=== PATIENT | female | born 1980 | race Caucasian/White ===

== ENCOUNTER 2017-11-22 10:25 | Outpatient (REF) | payer BC, SELFPAY ==
--- NOTE | 2017-11-22 09:30 | PAPFT_PTH ---
PATIENT: Leida Cadet LOC: [facility] U#:[id number] AGE/SX: 37/F ROOM: RE11/22/[address]: Therese Harper MD, DC : 1980 BED: DIS: 11/22/2017 SPEC #: [id number] RECD: 11/22/17 13:06 STATUS: PARAM REJoe #: [id number] MIR: 11/22/17 09:[address]: Therese Harper DEPT: [facility] Cytology RECD BY: Umm Liu Tissues: 1 - CX/ENDOCX FOR PAP SMEARS Procedures: PAP THIN PREP/UVM Screening HPV DNA PROBE Comments: [id number] (CHLAMYDIA/GC)
[2017-11-23 15:54] LABS: Chlamydia Result Negative; GC Result Negative; Specimen Description SEE COMMENTS
== END 2017-11-22 10:45 ==
LOC: LBN 10:25
PROVIDERS: PCP Family Medicine; Visit Provider Family Medicine
DX: Z12.4 Encounter for screening for malignant neoplasm of cervix (principal); Z11.51 Encounter for screening for human papillomavirus (HPV); Z11.3 Encounter for screening for infections with a predominantly sexual mode of transmission
CPT/HCPCS: 87491; 87591; 88142; 87624

== ENCOUNTER 2018-11-27 09:38 | Outpatient (CLI) | payer BC, SELFPAY ==
[2018-11-29 17:06] LABS: Alpha-1-Antitrypsin 116 mg/dL (100 - 190)
== END 2018-11-27 09:58 ==
PROVIDERS: PCP Family Medicine; Visit Provider Family Medicine
DX: F17.200 Nicotine dependence, unspecified, uncomplicated (principal); Z00.00 Encounter for general adult medical examination without abnormal findings; Z83.49 Family history of other endocrine, nutritional and metabolic diseases
CPT/HCPCS: 36415; 82103; 82104

== ENCOUNTER 2018-11-27 10:06 | Outpatient (REF) | payer BC, SELFPAY ==
--- NOTE | 2018-11-27 09:30 | PAPFT_PTH ---
PATIENT: Leida Cadet LOC: [facility] U#:[id number] AGE/SX: 38/F ROOM: RE11/27/[address]: Therese Harper MD, DC : 1980 BED: DIS: 11/27/2018 SPEC #: [id number] RECD: 11/27/18 13:06 STATUS: PARAM REQ #: [id number] MIR: 11/27/18 09:[address]: Therese Harper DEPT: [facility] Cytology RECD BY: Umm Liu Tissues: 1 - CX/ENDOCX FOR PAP SMEARS Procedures: PAP THIN PREP/UVM Screening HPV DNA PROBE Comments: [id number]
== END 2018-11-27 10:26 ==
LOC: LBN 10:06
PROVIDERS: PCP Family Medicine; Visit Provider Family Medicine
DX: Z12.4 Encounter for screening for malignant neoplasm of cervix (principal); Z11.51 Encounter for screening for human papillomavirus (HPV)
CPT/HCPCS: 88142; 87624

== ENCOUNTER 2019-10-12 07:57 | Outpatient (CLI) | payer BC, SELFPAY ==
[2019-10-15 10:49] LABS: SARS-CoV-2 RNA Undetected (Undetected); SARS-CoV-2 Specimen Source Nasopharynx
== END 2019-10-12 08:17 ==
PROVIDERS: PCP Family Medicine; Visit Provider Family Medicine
DX: Z11.59 Encounter for screening for other viral diseases (principal)
CPT/HCPCS: U0003

== ENCOUNTER 2020-02-15 03:34 | Outpatient (CLI) | payer BC, SELFPAY ==
[2020-02-18 21:28] LABS: COVID-19 RT-PCR Result NEGATIVE (Negative)
== END 2020-02-15 03:54 ==
PROVIDERS: PCP Family Medicine; Visit Provider Family Medicine
DX: Z20.828 Contact with and (suspected) exposure to other viral communicable diseases (principal)
CPT/HCPCS: U0003

== ENCOUNTER 2022-03-09 12:34 | Outpatient (REF) | payer BC, SELFPAY ==
--- NOTE | 2022-03-09 11:30 | PAPFT_PTH ---
PATIENT: Leida Cadet LOC: [facility] U#:[id number] AGE/SX: 41/F ROOM: RE03/09/[address]: Therese Harper MD, DC : 1980 BED: DIS: 03/09/2022 SPEC #: [id number] RECD: 03/10/22 13:17 STATUS: PARAM REQ #: [id number] MIR: 03/09/22 11:[address]: Therese Harper DEPT: [facility] Cytology RECD BY: Umm Liu Tissues: 1 - CX/ENDOCX FOR PAP SMEARS Procedures: PAP THIN PREP/UVM Screening HPV DNA PROBE Comments: [id number]
== END 2022-03-09 12:35 | disposition home or self-care (01) ==
LOC: LBN 12:34
PROVIDERS: PCP Family Medicine; Visit Provider Family Medicine
DX: Z12.4 Encounter for screening for malignant neoplasm of cervix (principal); Z11.51 Encounter for screening for human papillomavirus (HPV)
CPT/HCPCS: 88142; 87624

== ENCOUNTER 2022-06-04 17:28 | Outpatient (REF) | payer BC, SELFPAY | END 2022-06-04 17:29 | disposition home or self-care (01) | LOC: LBN 17:28 | PROVIDERS: PCP Family Medicine; Visit Provider Nurse Practitioner Family | DX: J02.9 Acute pharyngitis, unspecified (principal) | CPT/HCPCS: 87070 ==

== ENCOUNTER 2024-04-04 08:09 | Emergency (ER) | payer OTHER, SELFPAY ==
[2024-04-04 08:10] VITALS: BP 146/90; PULSE 105; RESP 16; TEMP 37.1; O2SAT 97
--- NOTE | 2024-04-04 08:15 | DI.RAD_ITS ---
Exam(s) XR FOOT RT COMPLETE EXAM: XR FOOT RT COMPLETE CLINICAL HISTORY: 3-5th toe injury, lacerations/ecchymosis. TECHNIQUE: 2D digital imaging was performed. Three views. COMPARISON: No exams were available for comparison FINDINGS: BONES: There are comminuted fractures of the distal phalanges of the 2nd through 4th toes. There is separation of fracture fragments but no extension to the articular surface. No bony destructive lesi on is seen. JOINTS: No dislocation present. SOFT TISSUE: Normal soft tissue swelling and lacerations of the 3rd 2nd through 4th toes. No foreign bodies. IMPRESSION: Comminuted fractures of the 2nd through 4th toes. DATA REPOSITORY: RADIATION DOSE DELIVERED:
--- OUTSIDE RECORDS SUMMARY | 2024-04-04 08:29 | XMS_ITS | Encounter Summary ---
Author Organization [facility] Address [address] [place] [address] Care Team Providers Care Drone Pilot Name Role Phone Unknown, Provider Primary Care Provider Unava ilable Encounter Details Date Type Department Care Team (Late st Contact Info) Description 03/11/[address] [facility] Pathology & Laboratory Medicine - [facility] [address] [place] [address] Therese Harper MD [address] [place] [phone] Encounter for other general examination Social History Tobacco Use Types Packs/Day Years Used Date Smoking Tobacco: Never Assessed Comments Unknown Sex and Gender Information Value Date Recorded Sex Assigned at Not on file Legal Sex Female 18:41 EST Gender Identity Not on file Sexual Orientation Not on file documented as of this encounter Plan of Treatment Not on file documented as of this encounter Procedures Procedure Name Priority Date/Time Associated Diagnosis Comments PAP TEST Today 03/09/2022 11:30 EST Encounter for other general examination HPV DNA DETECTION WITH GENOTYPING, PCR Today 03/09/2022 11:30 EST Encounter for other general examination documented in this encounter Results * HUMAN PAPILLOMAVIRUS (HPV) DETECTION-HIGH RISK TYPES (03/09/2022 11:30 EST) HPV other High Risk types, PCR Negative Negative 03/19/2022 15:54 EST [facility] Comment:No E6 or E7 mRNA is detected from HPV types 16,18,31,33,35,39,45,51,52,56,58,59,66, and 68 by product development director mediated amplification. Papanicolaou smear specimen (specimen) CERVIX UTERI STRUCTURE / Unknown 03/09/2022 11:30 EST 03/19/2022 10:21 EST us Therese Harper MD MICROBIOLOGY - GENERAL EVELIA PEREZ Final Result [facility] [address] [place] [id number] * PAP TEST (03/09/2022 11:30 EST) Specimens A. Cervix and/or Endocervix , ThinPrep Imaging System with Manual Evaluation 03/19/2022 15:54 [facility] Specimen Adequacy Satisfactory for Evaluation - transformation zone component present 03/19/2022 15:54 [facility] General Categorization Negative for intraepithelial lesion or malignancy 03/19/2022 15:54 [facility] Descriptive Diagnosis Reactive cellular changes associated with inflammation present (includes repair). 03/19/2022 15:54 [facility] Attestation By the signature below, the attending physician certifies that they have personally conducted a gross and/or microscopic examination of the described specimens and rendered or confirmed the above diagnosis. 03/19/2022 15:54 [facility] at 1554 Clinical History See below 03/19/19 23 15:54 [facility] HPV The result for the Human Papillomavirus (HPV) Detection-High Risk Types is Negative. No E6 or E7 mRNA is detected from HPV types 16,18,31,33,35,39 ,45,51,52,56,58,5 9,66, and 68 by product development director mediated amplification.Janneth ting was performed on specimen [id number] and was resulted on 03/19/2022 1554 EST by GERARDO, LAB INSTRUMENT RESULTS IN 03/19/2022 15:54 [facility] Performing Lab [facility] 03/19/2022 15:54 [facility] Scanned Images 03/19/2022 15:54 [facility] Papanicolaou smear specimen (specimen) CERVIX UTERI STRUCTURE / Unknown 03/09/2022 11:30 EST 03/11/2022 14:21 EST us Therese Harper MD PATHOLOGY ORDERABLES Final Result [facility] [address] [place] [address] documented in this encounter Visit Diagnoses Diagnosis Encounter for other general examination documented in this encounter Care Teams Drone Pilot Relationship Specialty Start Date End Date Unknown, Provider, PCP - General 01/04/15 documented as of this encounter
--- OUTSIDE RECORDS SUMMARY | 2024-04-04 08:29 | XMS_ITS | Encounter Summary ---
Author Organization [facility] Address [address] [place] [address] Care Team Providers Care Ink Jet Operator Name Role Phone Unavailable Primary Care Provider Unavailabl e Encounter Details Date Type Department Care Team (Late st Contact Info) Description 07/16/2014 Results Only [facility] [phone] Therese Harper MD [address] [place] [phone] Social History Tobacco Use Types Packs/Day Years [...] Name Priority Date/Time Associated Diagnosis Comments PAP TEST- RESULT ONLY Routine 07/16/2014 0:00 EDT documented in this encounter Results * PAP TEST- RESULT ONLY (07/16/2014 0:00 EDT) Pathology Report: CYTOPATHOLOGY REPORT Reports generated via electronic interface contain original data; however they are lacking the format of the original report. Caution should be taken when reading/interpreti ng unformatted reports. Name: ? SOTO MANTILLA ? Accession #: ? [id number] ? : ? 1980 (Age: 34) ??F ?Collect Date: ? 07/16/2014 ? Location: ? [facility] ? Receive Date: ? 07/17/2014 ? Provider: THERESE HARPER MD Copy to: ? Final Report SPECIMEN ADEQUACY ? Satisfactory for Evaluation - transformation zone component present GENERAL CATEGORIZATION ? Negative for Intraepithelial Lesion or Malignancy INTERPRETATION ? Fungal organisms present morphologically consistent with Stefani species. Last Menstrual Period: 07/01/14 Specimen/Source: ??Pap Test, Cervix/Endocervix, ThinPrep Imaging System with manual evaluation Document reviewed and electronically signed by: ? CYNDI Cardoza(ASCP) ? Report ??Date: 07/26/2014 15:30 HPV with Pap Test ? Date Ordered: ? 07/26/2014 ? Status: ?? Signed Out ?Date Complete: ? 07/30/2014 ? By: ??System Interface ? Date Reported: ? 07/30/2014 ? Interpretation RESULT: Negative for HPV. No E6 or E7 mRNA is detected from HPV types 16,18,31,33,35, 39,45,51,52,56,58, 59,66, and 68 by revenue settlements administrator mediated amplification. Comments Document reviewed and electronically signed by: ? System Interface ? Report date: 07/30/2014 By the signature above, the attending physician certifies that he/she has personally conducted a gross and/or microscopic examination of the described specimens and rendered or confirmed the above diagnosis. End of Report [facility] 07/16/2014 07/17/2014 us Therese Harper MD PATHOLOGY ORDERABLES Final Result [facility] [address] [place] [address] documented in this encounter Visit Diagnoses Not on filedocumented in this encounter
--- OUTSIDE RECORDS SUMMARY | 2024-04-04 08:29 | XMS_ITS | Clinical Summary ---
Author Organization [facility] [place] [address] Care Team Providers Care Manager Maintenance Name Role Phone Therese Harper MD Primary Care Provider Allergies No known active allergies Medications Medication Sig Dispensed Refills Start Date End Date Status amitriptyline (ELAVIL) 10 mg Tablet Takes PRN for insomnia 0 12/05/2017 Active nicotine (NICODERM CQ) 7 mg/24 [address] 1 PATCH TOPICALLY ONCE DAILY 0 12/05/2017 Active atovaquone-proguanil (MALARONE) 250-100 mg TabletIndications:Co unseling for travel,Need for malaria prophylaxis Take 1 tablet by mouth daily. Start day before travel to risk area, daily while there & for 7 days after. Take with food. 30 tablet 03/03/2018 Active vitamin E mixed/tocotrienol (VITAMIN E COMPLEX ORAL) Take by mouth. Active Active Problems Problem Noted Date Diagnosed Date Healthcare maintenance 03/03/2018 Immunizations Name Administration Dates Next Due DTP 11/30/1983,1982,1982 ,1980 MMR Vaccine LIVE 06/10/1993,06/22/1983 Polio Oral, Unknown Formulation 11/30/1983,09/22,1982,1982 Td Adult (not absorbed) 10/19/1993,06/22/1988 Yellow Fever Vaccine - Alt 03/03/2018 Social History Tobacco Use Types Packs/Day Years Used Date Smoking Tobacco: Light Smoker Cigarettes Smokeless Tobacco: Never Tobacco Cessation:Ready to Q uit: Yes; Counseling Given: Yes Comments:2 cigs/day Sex and Gender Information Value Date Recorded Sex Assigned at Not on file Gender Identity Not on file Sexual Orientation Not on file Plan of Treatment Health Maintenance Due Date Last Done Comments Tetanus/Diphtheria/Pertussis Vaccines (6 - Tdap) 10/20/1993 10/19/1993, 06/22/1988, 11/30/1983, Additional history exists HIV screen 2000 Hepatitis C Screening 2000 Lipid Screening 2000 Hepatitis B vaccine (0-59 yr s) (1) 2001 HPV test 2012 PAP Smear 2012 Breast Cancer Share Decision Needed 2022 Breast Cancer screening 2022 Covid-19 Vaccine ( - 2023-2 5 season) 2023 Influenza (Flu) vaccine (1 o f 1 - Influenza standard series) 10/30/2023 Care Teams Manager Maintenance Relationship Specialty Start Date End Date Therese Harper MD [address] [place], [place] [address] PCP - General Family Medicine 03/03/18
--- OUTSIDE RECORDS SUMMARY | 2024-04-04 08:29 | XMS_ITS | Encounter Summary ---
Author Organization [facility] Address [address] [place] [address] Care Team Providers Care Machine Operator Helper Name Role Phone Unavailable Primary Care Provider Unavailabl e Encounter Details Date Type Department Care Team (Late st Contact Info) Description 07/06/2010 Results Only [facility] Laboratory Services - [facility] ([facility] [address] [place] [id number] Therese Harper MD [address] [place] [phone] Social History Tobacco Use Types Packs/Day Years [...] Diagnosis Comments PAP TEST- RESULT ONLY Routine 07/06/2010 0:00 EDT documented in this encounter Results * PAP TEST- RESULT ONLY (07/06/2010 0:00 EDT) Pathology Report: CYTOPATHOLOGY REPORT ? Reports generated via electronic interface contain original data; ? however they are lacking the format of the original report. ? Caution should be taken when reading/interpreti ng unformatted reports. ? Name: ? SOTO CADET ? Accession #: ? [id number] ? : ? 1980 (Age: 30) ??F ?Collect Date: ? 07/06/2010 ? Location: ? [facility] ? Receive Date: ? 07/09/2010 ? Provider: THERESE M DOBBERTIN MD ? Copy to: ? Final Report ? SPECIMEN ADEQUACY ? Satisfactory for Evaluation ? - transformation zone component present ? GENERAL CATEGORIZATION ? Negative for Intraepithelial Lesion or Malignancy ? INTERPRETATION ? Reactive cellular changes associated with inflammation present (includes ?? repair). ? Last Menstural Period: 07/05/10 ? Specimen/Source: ??Pap Test, Endocervix, ThinPrep Imaging System with manual ? evaluation ? Document reviewed and electronically signed by: ? ROSAURADKRYS CROFTMAN MBBCh ? Report ??Date: 07/15/2010 16:28 ? HPV with Pap Test ? Date Ordered: ? 07/15/2010 ? Status: ?? Signed Out ?Date Complete: ? 07/20/2010 ? By: ??System Interface ? Date Reported: ? 07/20/2010 ? Interpretation ? RESULT: Negative for HPV types 16, 18, 31, 33, 35, 39, 45, 51, 52, ? 56, 58, 59, and 68. ? Comments ? Document reviewed and electronically signed by: ? System Interface ? Report date: 07/20/2010 ? By the signature above, the attending physician certifies that he/she has ? personally conducted a gross and/or microscopic examination of the described ? specimens and rendered or confirmed the above diagnosis. ? End of Report ? [facility] 07/06/2010 07/09/2010 Therese Harper MD PATHOLOGY ORDERABLES Final Result [facility] [address] [place] [address] documented in this encounter Visit Diagnoses Not on filedocumented in this encounter
--- OUTSIDE RECORDS SUMMARY | 2024-04-04 08:29 | XMS_ITS | Encounter Summary ---
Author Organization [facility] Address [address] [place] [address] Care Team Providers Care Toll Lineman Name Role Phone Unknown, Provider Primary Care Provider Unava ilable Encounter Details Date Type Department Care Team (Late st Contact Info) Description 11/22/2017 Results Only [facility] [phone] Therese Harper MD [address] [place] [address] [address] [place] [phone] Social History Tobacco Use Types Packs/Day Years [...] Diagnosis Comments PAP TEST- RESULT ONLY Routine 11/22/2017 0:00 EDT documented in this encounter Results * PAP TEST- RESULT ONLY (11/22/2017 0:00 EDT) Pathology Report: CYTOPATHOLOGY REPORT Reports generated via electronic interface contain original data; however they are lacking the format of the original report. Caution should be taken when reading/interpreti ng unformatted reports. Name: ? JOSE RAFAEL SOTO Fan ? Accession #: ? [id number] ? : ? 1980 (Age: 37) ??F ?Collect Date: ? 11/22/2017 ? Location: ? [facility] ? Receive Date: ? 11/23/2017 ? Provider: THERESE HARPER MD Copy to: ? Final Report SPECIMEN ADEQUACY ? Satisfactory for Evaluation - transformation zone component present GENERAL CATEGORIZATION ? Negative for Intraepithelial Lesion or Malignancy ?? Last Menstrual Period: 11/01/17 Other: Additional clinical information: Repeat okay Specimen/Source: ??Pap Test, Cervix/Endocervix, ThinPrep Imaging System with manual evaluation Document reviewed and electronically signed by: ? Deepika Simons, [facility](ASCP) ? Report ??Date: 11/28/2017 14:16 HPV with Pap Test ? Date Ordered: ? 11/28/2017 ? Status: ?? Signed Out ?Date Complete: ? 11/30/2017 ? By: ??System Interface ? Date Reported: ? 11/30/2017 ? Interpretation RESULT: Negative for HPV. No E6 or E7 mRNA is detected from HPV types 16,18,31,33,35, 39,45,51,52,56,58, 59,66, and 68 by head mechanic mediated amplification. Comments Document reviewed and electronically signed by: ? System Interface ? Report date: 11/30/2017 By the signature above, the attending physician certifies that he/she has personally conducted a gross and/or microscopic examination of the described specimens and rendered or confirmed the above diagnosis. End of Report [facility] 11/22/2017 11/23/2017 us Therese Harper MD PATHOLOGY ORDERABLES Final Result [facility] [address] [place] [address] documented in this encounter Visit Diagnoses Not on filedocumented in this encounter Care Teams Toll Lineman Relationship Specialty Start Date End Date Unknown, Provider, PCP - General 01/04/15 documented as of this encounter
--- OUTSIDE RECORDS SUMMARY | 2024-04-04 08:29 | XMS_ITS | Encounter Summary ---
Author Organization [facility] Address [address] [place] [address] Care Team Providers Care Centerless Grinder Tender Name Role Phone Unknown, Provider Primary Care Provider Unava ilable Encounter Details Date Type Department Care Team (Late st Contact Info) Description 02/15/2020 Lab Requisition [facility] Pathology & Laboratory Medicine - [facility] [address] [place] [address] Outr Resulting Lab, Provider Social History Tobacco Use Types Packs/Day Years [...] Procedure Name Priority Date/Time Associated Diagnosis Comments DO NOT ORDER STANDALONE - [facility] COVID TEST Today 02/15/2020 14:40 EST COVID-19 TESTING Routine 02/15/2020 14:4 0 EST documented in this encounter Results * DO NOT ORDER STANDALONE - [facility] COVID TEST (02/15/2020 14:40 EST) COVID-19 rt-PCR Result NEGATIVE Negative 02/18/2020 19:45 EST [facility] Comment: 2019-novel Coronavirus (2019-nCoV) not detected by the qRT-PCR assay. Consider testing for other respiratory viruses or re-collecting for 2019-nCoV testing. Note: Optimum timing for peak viral levels during infections caused by 2019-nCoV have not been determined. Collection of multiple specimens from the same patient may be necessary to detect the virus. Limitations Positive results are indicative of active infection with SARS-CoV-2 but do not rule out bacterial infection or co-infection with other viruses. The agent detected may not be the definite cause of disease. In addition, detection of viral RNA may not indicate the presence of infectious virus or that SARS-CoV-2 is the causative agent for clinical symptoms. Negative results do not preclude SARS-CoV-2 infection and should not be used as the sole basis for patient management decisions. Negative results must be combined with clinical observations, patient history, and epidemiological information. False negative results may also occur if amplification inhibitors are present in the specimen or if inadequate numbers of organisms are present in the specimen. Optimum specimen types and timing for peak viral levels during infections caused by SARS-CoV-2 have not been fully determined. Collection of multiple specimens (types and time points) from the same patient may be necessary to detect the virus. The test was validated for use with upper respiratory specimens obtained via nasopharyngeal or oropharyngeal swabs in VTM, UTM, M4, M5, M6, saline, and MTM media. The performance of this test has not been established for other specimens. Specimens collected using other FDA recommended Specimen Collection Materials listed in the FDA COVID-19 [employer] communication (May 24, 2019) are processed with the caveat that they were not all validated for use with this test and the result must be interpreted in this context. Furthermore, a false negative results may occur if a specimen is improperly collected, transported or handled. If the virus mutates in the RT-PCR target region, SARS-CoV-2 may not be detected or may be detected less predictably. Inhibitors or other types of interference may produce a false negative result. An interference study evaluating the effect of common cold medications was not performed. This test is not FDA-cleared but its performance characteristics were established by our CLIA-certified, CAP-accredited, high complexity laboratory in accordance with CLIA regulations, [employer] (CAP) guidelines (May 17, 2019), and FDA guidance (Apr 28, 2019). This test is only for use under the Food and Drug Administration's Emergency Use Authorization. Swab ENTIRE NASOPHARYNX / Unknown 02/15/2020 14:40 EST 02/15/2020 21:22 EST us Provider Outr Resulting Lab MICROBIOLOGY - GENER AL ORDERABLES Final Result [facility] [place] * COVID-19 TESTING (02/15/2020 14:40 EST) COVID-19 rt-PCR Result NEGATIVE Negative 02/18/2020 21:22 EST [facility] Comment: 2019-novel Coronavirus (2019-nCoV) not detected by the qRT-PCR assay. Consider testing for other respiratory viruses or re-collecting for 2019-nCoV testing. Note: Optimum timing for peak viral levels during infections caused by 2019-nCoV have not been determined. Collection of multiple specimens from the same patient may be necessary to detect the virus. Limitations Positive results are indicative of active infection with SARS-CoV-2 but do not rule out bacterial infection or co-infection with other viruses. The agent detected may not be the definite cause of disease. In addition, detection of viral RNA may not indicate the presence of infectious virus or that SARS-CoV-2 is the causative agent for clinical symptoms. Negative results do not preclude SARS-CoV-2 infection and should not be used as the sole basis for patient management decisions. Negative results must be combined with clinical observations, patient history, and epidemiological information. False negative results may also occur if amplification inhibitors are present in the specimen or if inadequate numbers of organisms are present in the specimen. Optimum specimen types and timing for peak viral levels during infections caused by SARS-CoV-2 have not been fully determined. Collection of multiple specimens (types and time points) from the same patient may be necessary to detect the virus. The test was validated for use with upper respiratory specimens obtained via nasopharyngeal or oropharyngeal swabs in VTM, UTM, M4, M5, M6, saline, and MTM media. The performance of this test has not been established for other specimens. Specimens collected using other FDA recommended Specimen Collection Materials listed in the FDA COVID-19 [employer] communication (May 24, 2019) are processed with the caveat that they were not all validated for use with this test and the result must be interpreted in this context. Furthermore, a false negative results may occur if a specimen is improperly collected, transported or handled. If the virus mutates in the RT-PCR target region, SARS-CoV-2 may not be detected or may be detected less predictably. Inhibitors or other types of interference may produce a false negative result. An interference study evaluating the effect of common cold medications was not performed. This test is not FDA-cleared but its performance characteristics were established by our CLIA-certified, CAP-accredited, high complexity laboratory in accordance with CLIA regulations, [employer] (CAP) guidelines (May 17, 2019), and FDA guidance (Apr 28, 2019). This test is only for use under the Food and Drug Administration's Emergency Use Authorization. Performing Lab [facility] 02/18/2020 21:22 EST [facility] Swab 02/15/2020 14:4 0 EST 02/15/2020 21:22 EST us Provider Outr Resulting Lab MICROBIOLOGY - GENER AL ORDERABLES Final Result [facility] [address] [place] [address] [facility] [place] documented in this encounter Visit Diagnoses Not on filedocumented in this encounter Care Teams Centerless Grinder Tender Relationship Specialty Start Date End Date Unknown, Provider, PCP - General 01/04/15 documented as of this encounter
--- OUTSIDE RECORDS SUMMARY | 2024-04-04 08:29 | XMS_ITS | Encounter Summary ---
Author Organization [facility] Address [address] [place] [address] Care Team Providers Care Trade Manager Name Role Phone Unavailable Primary Care Provider Unavailabl e Encounter Details Date Type Department Care Team (Late st Contact Info) Description 07/17/2009 Results Only [facility] Laboratory Services - [facility] ([facility] [address] [place] [address] [phone] Therese Harper MD [address] [place] [address] Social History Tobacco Use Types [...] Procedure Name Priority Date/Time Associated Diagnosis Comments HPV DETECTION, HIGH RISK TYPES Routine 07/17/2009 14:19 EDT CYTOPATHOLOGY Routine 07/17/2009 0:00 EDT documented in this encounter Results * HUMAN PAPILLOMA VIRUS DNA TEST (07/17/2009 14:19 EDT) Specimen Description Cervix, ThinPrep vial [facility] Result Positive for one or more of HPV types 16,18,31,33,35 ,39,45,51,52,5 6,58,59, or 68. These high/intermedi ate risk HPV types are associated with dysplasia and some cervical cancers. [facility] Report Status Final 07/29/2009 [facility] 07/17/2009 14:1 9 EDT 07/23/2009 14:19 EDT us Therese Harper MD MICROBIOLOGY - GENERAL EVELIA PEREZ Final Result [facility] [address] [place] [address] * CYTOPATHOLOGY (07/17/2009 0:00 EDT) Pathology Report: CYTOPATHOLOGY REPORT ? Reports generated via electronic interface contain original data; ? however they are lacking the format of the original report. ? Caution should be taken when reading/interpreti ng unformatted reports. ? Name: ? SOTO CADET ? Accession #: ? [id number] ? : ? 1980 (Age: 29) ??F ?Collect Date: ? 07/17/2009 ? Location: ? [facility] ? Receive Date: ? 07/21/2009 ? Provider: ?THERESE M DOBBERTIN MD ? Copy to: ? Specimen/Source: ?Pap Test, Endocervix, ThinPrep Imaging System with ? manual evaluation ? Last Menstrual Period: ? Other: ? HPVDX - HPV testing requested regardless of diagnosis on current ThinPrep Pap ?? test. ? SPECIMEN ADEQUACY ? Satisfactory for Evaluation ? - transformation zone component present ? GENERAL CATEGORIZATION ? Negative for Intraepithelial Lesion or Malignancy ? Document reviewed and electronically signed by: ? Essence [place], [place](ASCP) ? Report Date: ??07/23/2009 08:35 ? End of Report ? [facility] 07/17/2009 07/21/2009 us Therese Harper MD PATHOLOGY ORDERABLES Final Result [facility] [address] [place] [address] documented in this encounter Visit Diagnoses Not on filedocumented in this encounter
--- OUTSIDE RECORDS SUMMARY | 2024-04-04 08:29 | XMS_ITS | Encounter Summary ---
Author Organization [facility] Address [address] [place] [address] Care Team Providers Care Community Outreach Manager Name Role Phone Unavailable Primary Care Provider Unavailabl e Encounter Details Date Type Department Care Team (Late st Contact Info) Description 07/04/2008 Orders Only [facility] Laboratory Services - [facility] ([facility] [address] [place] [id number] Therese Harper MD [address] [place] [address] Social History Tobacco Use Types [...] Procedure Name Priority Date/Time Associated Diagnosis Comments CYTOPATHOLOGY Routine 07/04/2008 0:00 EDT documented in this encounter Results * CYTOPATHOLOGY (07/04/2008 0:00 EDT) Pathology Report: CYTOPATHOLOGY REPORT ? Reports generated via electronic interface contain original data; ? however they are lacking the format of the original report. ? Caution should be taken when reading/interpreti ng unformatted reports. ? Name: ? SOTO CADET ? Accession #: ? [id number] ? : ? 1980 (Age: 28) ??F ?Collect Date: ? 07/04/2008 ? Location: ? [facility] ? Receive Date: ? 07/08/2008 ? Provider: ?THERESE HARPER MD ? Copy to: ? Specimen/Source: ?Pap Test, Endocervix, ThinPrep Imaging System with ? manual evaluation ? Last Menstrual Period: ? 04/29/09 ? Hormonal/Contracep tive Status: ? Yes ? Previous Gynecologic Pathology: ? ASC-US: + 11/06 ? HPV: + ? Other: ? HPVA - HPV testing requested if ASC-US on the current ThinPrep Pap test. ? SPECIMEN ADEQUACY ? Satisfactory for Evaluation ? - transformation zone component present ? GENERAL CATEGORIZATION ? Negative for Intraepithelial Lesion or Malignancy ? INTERPRETATION ? Reactive cellular changes associated with inflammation present (includes ?? repair). ? Document reviewed and electronically signed by: ? SAMPSON OSHEA MD MBB[facility] ? Report Date: ??07/11/2008 14:24 ? End of Report ? [facility] 07/04/2008 07/08/2008 us Therese Harper MD PATHOLOGY ORDERABLES Final Result [facility] [address] [place] [address] documented in this encounter Visit Diagnoses Not on filedocumented in this encounter
--- OUTSIDE RECORDS SUMMARY | 2024-04-04 08:29 | XMS_ITS | Encounter Summary ---
Author Organization [facility] Address [address] [place] [address] Care Team Providers Care Heading Matcher And Assembler Name Role Phone Unknown, Provider Primary Care Provider Unava ilable Encounter Details Date Type Department Care Team (Late st Contact Info) Description 11/27/2018 Results Only [facility]- [facility] [phone] Therese Harper MD [facility] [address] [place] [phone] Social History Tobacco Use Types Packs/Day Years [...] Diagnosis Comments PAP TEST- RESULT ONLY Routine 11/27/2018 0:00 EDT documented in this encounter Results * PAP TEST- RESULT ONLY (11/27/2018 0:00 EDT) Pathology Report: CYTOPATHOLOGY REPORT Reports generated via electronic interface contain original data; however they are lacking the format of the original report. Caution should be taken when reading/interpreti ng unformatted reports. Name: ? JOSE RAFAEL SOTO Fan ? Accession #: ? [id number] ? : ? 1980 (Age: 38) ??F ?Collect Date: ? 11/27/2018 ? Location: ? [facility] ? Receive Date: ? 11/28/2018 ? Provider: THERESE HARPER MD Copy to: ? Final Report SPECIMEN ADEQUACY ? Satisfactory for Evaluation - transformation zone component present GENERAL CATEGORIZATION ? Negative for Intraepithelial Lesion or Malignancy ?? Last Menstrual Period: 2 WEEKS AGO Specimen/Source: ??Pap Test, Cervix/Endocervix, ThinPrep Imaging System with manual evaluation Document reviewed and electronically signed by: ? Kaylene [place], [place](ASCP)(IAC) ? Report ??Date: 11/29/2018 16:54 HPV with Pap Test ? Date Ordered: ? 11/29/2018 ? Status: ?? Signed Out ?Date Complete: ? 11/30/2018 ? By: ??System Interface ? Date Reported: ? 11/30/2018 ? Interpretation RESULT: Negative for HPV. No E6 or E7 mRNA is detected from HPV types 16,18,31,33,35, 39,45,51,52,56,58, 59,66, and 68 by manufacturing controls engineer mediated amplification. Comments Document reviewed and electronically signed by: ? System Interface ? Report date: 11/30/2018 By the signature above, the attending physician certifies that he/she has personally conducted a gross and/or microscopic examination of the described specimens and rendered or confirmed the above diagnosis. End of Report [facility] 11/27/2018 11/28/2018 us Therese Harper MD PATHOLOGY ORDERABLES Final Result [facility] [address] [place] [address] documented in this encounter Visit Diagnoses Not on filedocumented in this encounter Care Teams Heading Matcher And Assembler Relationship Specialty Start Date End Date Unknown, Provider, PCP - General 01/04/15 documented as of this encounter
--- OUTSIDE RECORDS SUMMARY | 2024-04-04 08:29 | XMS_ITS | Referral Summary ---
Author Organization [facility] Address [address] [place] [address] Care Team Providers Care Skill Training Program Coordinator Name Role Phone Unknown, Provider Primary Care Provider Unava ilable Social History Tobacco Use Types Packs/Day Years Used Date Smoking Tobacco: Never Assessed Comments Unknown Sex and Gender Information Value Date Recorded Sex Assigned at Not on file Legal Sex Female 18:41 EST Gender Identity Not on file Sexual Orientation Not on file Plan of Treatment Not on file Care Teams Skill Training Program Coordinator Relationship Specialty Start Date End Date Unknown, Provider, PCP - General 01/04/15
--- OUTSIDE RECORDS SUMMARY | 2024-04-04 08:29 | XMS_ITS | Encounter Summary ---
Author Organization [facility] Address [address] [place] [address] Care Team Providers Care Technical Document Writer Name Role Phone Unknown, Provider Primary Care Provider Unava ilable Encounter Details Date Type Department Care Team (Late st Contact Info) Description 01/13/2022 Lab Requisition [facility] Pathology & Laboratory Medicine - [facility] [address] [place] [address] Therese Harper MD [address] [place] [phone] Encounter for other general examination Social History [...] Date/Time Associated Diagnosis Comments PAP TEST Today 01/11/2022 13:30 EST Encounter for other general examination documented in this encounter Results * PAP TEST (01/11/2022 13:30 EST) Specimens A. Cervix and/or Endocervix , ThinPrep Imaging System with Manual Evaluation 01/20/2022 14:24 EST [facility] Specimen Adequacy Unsatisfactory for evaluation - insufficient numbers of squamous epithelial cells (less than 10% of expected cellularity). 01/20/2022 14:24 EST [facility] General Categorization Unsatisfactory 01/20/2022 14:24 EST [facility] Educational Comments Unsatisfactory - Specimen processed and examined, but unsatisfactory for evaluation of epithelial abnormality. Recommend repeat age-based screening after 2-4 months per ASCCP Guidelines which may be found at www.asccp.org. HPV testing will not be performed due to the potential for false negative results. 01/20/2022 14:24 EST [facility] Attestation . 01/20/2022 14:24 EST [facility] at 1424 Clinical History SEE BELOW 01/21/20 14:24 EST [facility] Performing Lab [facility] 01/20/2022 14:24 [facility] Scanned Images 01/20/2022 14:24 [facility] Papanicolaou smear specimen (specimen) CERVIX UTERI STRUCTURE / Unknown 01/11/2022 13:30 EST 01/13/2022 14:36 EST us Therese Harper MD PATHOLOGY ORDERABLES Final Result [facility] [address] [place] [address] documented in this encounter Visit Diagnoses Diagnosis Encounter for other general examination documented in this encounter Care Teams Technical Document Writer Relationship Specialty Start Date End Date Unknown, Provider, PCP - General 01/04/15 documented as of this encounter
--- OUTSIDE RECORDS SUMMARY | 2024-04-04 08:29 | XMS_ITS | Clinical Summary ---
Author Organization [facility] Address [address] [place] [address] Care Team Providers Care Human Resources Representative Name Role Phone Unknown, Provider Primary Care Provider Unava ilable Social History Tobacco Use Types Packs/Day Years Used Date Smoking Tobacco: Never Assessed Comments Unknown Sex and Gender Information Value Date Recorded Sex Assigned at Not on file Legal Sex Female 18:41 EST Gender Identity Not on file Sexual Orientation Not on file Plan of Treatment Health Maintenance Due Date Last Done Comments Hepatitis C Screen 1980 Hepatitis B Vaccine (1 of 3 - 19+ 3-dose series) 03/21 COVID-19 Vaccine (2023- season) 2023 Care Teams Human Resources Representative Relationship Specialty Start Date End Date Unknown, Provider, PCP - General 01/04/15
--- OUTSIDE RECORDS SUMMARY | 2024-04-04 08:29 | XMS_ITS | Encounter Summary ---
Author Organization [facility] Address [address] [place] [address] Care Team Providers Care Reconciliation Coordinator Name Role Phone Unavailable Primary Care Provider Unavailabl e Encounter Details Date Type Department Care Team (Late st Contact Info) Description 12/19/2006 Results Only [facility] [address] [place] [address] Lesly Bernstein, NOLAN Social History Tobacco Use Types Packs/Day Years [...] Priority Date/Time Associated Diagnosis Comments CYTOPATHOLOGY Routine 12/19/2006 0:00 EDT documented in this encounter Results * CYTOPATHOLOGY (12/19/2006 0:00 EDT) Pathology Report: CYTOPATHOLOGY REPORT Reports generated via electronic interface contain original data; however they are lacking the format of the original report. Caution should be taken when reading/interpreti ng unformatted reports. Name: ? JESSESOTO LEONARD ? Accession #: ? [id number] : ? 1980 (Age: 26) ??F ?Collect Date: ? 12/19/2006 Location: ? [facility] ? Receive Date: ? 12/20/2006 Provider: ?LESLY BERNSTEIN ENHANCED ENVIRONMENTAL OPERATOR Copy to: ? Specimen/Source: ?ThinPrep Pap Test, Cervix/Endocervix, processed on Ultius ThinPrep Imaging System, with manual evaluation Last Menstrual Period: ? 11/29/06 Hormonal/Contracep tive Status: ? Oral contraceptives Previous Gynecologic Pathology: ? ASC-US: with HPV 12/03 no F/u Other: ? HPVA - HPV testing requested if ASC-US on the current ThinPrep Pap test. ? SPECIMEN ADEQUACY ? Satisfactory for Evaluation - transformation zone component present GENERAL CATEGORIZATION ? Negative for Intraepithelial Lesion or Malignancy INTERPRETATION ? Reactive cellular changes associated with inflammation present (includes repair). ? Document reviewed and electronically signed by: ? Essence Freitas MD ? Report Date: ??12/30/2006 11:17 End of Report [facility] 12/19/2006 12/20/2006 us Lesly Bernstein NP PATHOLOGY ORDERABLES Final Re sult [facility] [address] [place] [address] documented in this encounter Visit Diagnoses Not on filedocumented in this encounter
--- OUTSIDE RECORDS SUMMARY | 2024-04-04 08:29 | XMS_ITS | Encounter Summary ---
Author Organization [facility] Address [facility] [place] [address] Care Team Providers Care Superintendent Fish Hatchery Name Role Phone Therese Harper MD Primary Care Provider [phone] Reason for Visit * Reason Comments Travel Consult Encounter Details Date Type Department Care Team (Late st Contact Info) Description 03/03/2018 2:30 PM EST Office Visit Infectious Disease at [facility] [place] [phone] Dinesh Tejeda, RN Counseling for travel; Need for prophylactic vaccination against yellow fever; Need for malaria prophylaxis Social History Tobacco Use Types Packs/Day Years Used Date Smoking Tobacco: Light Smoker Cigarettes Smokeless Tobacco: Never Tobacco Cessation:Ready to Q uit: Yes; Counseling Given: Yes Comments:2 cigs/day Sex and Gender Information Value Date Recorded Sex Assigned at Not on file Gender Identity Not on file Sexual Orientation Not on file documented as of this encounter Progress Notes * Dinesh Tejeda RN - 03/03/2018 2:30 PM EST Adult Travel Clinic Reason for Visit: Leiad Cadet is a 37 y.o. female patient who comes to travel clinic today forpre-travel evaluation, vaccination and traveler's health education. 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 Trip Details: Destination countries (list from first to last): Depart the [place] (direct flight[place]round trip) to [facility] and surrounding areas (04/13-05/02), return to [place] Departure date: 04/13/2018 Length of trip: x20 days Purpose of travel: Education Type of environment: [place] ([place] [facility] and Urban (transit) Accommodations: Dorms ([employer], modern amenities with window screens and mosquito bed nets) Medical History: Medical problems: Patient Active Problem List Diagnosis Code ??? Healthcare maintenance Z00.00 Current Outpatient Medications Medication Sig Dispense Refill ??? vitamin E mixed/tocotrienol (VITAMIN E COMPLEX ORAL) Take by mouth. ??? amitriptyline (ELAVIL) 10 mg Tablet Takes PRN for insomnia 0 ??? nicotine (NICODERM CQ) 7 mg/[address] PATCH TOPICALLY ONCE DAILY 0 ??? atovaquone-proguanil (MALARONE) 250-100 mg Tablet Take 1 tablet by mouth daily. Start day before travel to risk area, daily while there & for 7 days after. Take with food. 30 tablet 0 No current facility-administered medications for this visit. No Known Allergies-NKDA Immunosuppression: none, no history cancer/chemo/radiation, no recent immunosuppressants/steroids. History of adverse vaccine reactions: none History of latex, egg or beesting allergy: none or : none Patient advised to carry all medications in carry on luggage. Travel Health and Safety Issues: A discussion of travel health hazards and safety issues was done, including the following topics: traffic-accidents (alcohol, seatbelts), crime, alcohol related issues, sun exposure/heat illness, Schistosomiasis and other fresh water exposures, rabies, HIV infections, Hepatitis and other STD's, control, TB, Health Insurance coverage/[employer]. Discussed food and water precautions and patient handout provided. The following strategies were recommended for the management of traveler's diarrhea according to severity: ?? For treatment of mild diarrhea: hydration and over the counter antidiarrheal recommended. ?? For treatment of diarrhea accompanied by fever or systemic illness: hydration and empiric treatment with antibiotic recommended. A prescription for Azithromycin 500 mg daily x 3 days sent to pharmacy. Discussed antibiotic use, resistance and colonization issues. Advised to use antibiotics only for more severe symptoms, fever or worsening diarrhea. ?? For severe or bloody diarrhea, or diarrhea accompanied by vomiting: patient advised to seek medical treatment. Vector-borne Disease Prevention Discussed insect bite prevention to reduce risk of malaria, dengue, chikungunya and other insect borne illnesses. Handout given. Discussed Zika virus and the importance of mosquito precautions (Negligible risk may exist, but current epidemiologic data are unavailable). Advised condom use while in area at risk and for six months after return to the [place]. Malaria Risk: Significant risk of malaria on this itinerary. Discussed malaria chemoprophylaxis and possible sideeffects. Prescription for Malarone was given to the patient. Altitude: This trip does not involve high altitude. Immunizations Immunization History Administered Date(s) Administered ??? DTP [birth year], 11/30/1983 ??? MMR Vaccine, Live 06/22/1983, 06/10/1993 ??? Oral Poliovirus Vaccine, Unknown Formulation 1980, 1980, 1980, 11/30/1983 ??? Td, adult 06/22/1988, 10/19/1993 ??? Yellow Fever Vaccine - Alt 03/03/2018 Immunizations given today- Yellow Fever (Due to national Yellow Fever vaccine shortage, Stamaril given, refer to Stamaril IND Expanded Access Program below). Traveler is up to date with routine vaccinations including-MMR and Polio (primary series). Travelerreports is up to date with Tetanus (she will check with her school, will consider TDaP booster if last given was Td). Reports Chicken Pox disease as child. Hepatitis B-discussed disease, risk, and vaccine. Traveler declines with today's visit, and has been informed of safer sex practices and blood/bodily fluids precautions. Most likely had series as child, she will check with her PCP. Hepatitis A-discussed disease, risk, and vaccination. Travelers should observe food and beverage precautions, hand-hygiene measures, and observe safer sex practices. Traveler declines with today's visit, and will check with her PCP about vaccine history, and will consider series. Meningococcal-discussed disease, risk, and vaccination. Will be traveling to [place] during Dry season. Traveler declines with today's visit, and reports will receive vaccine throughher PCP. Influenza-discussed disease, risk, and vaccine. Traveler declines with today's visit, and will observe good hand/respiratory hygiene and cough etiquette. Discussed typhoid disease, risk and vaccine. Traveler opts to employ meticulous food and water precautions and decides to forgo vaccine for this trip. Rabies- discussed animal avoidance, wound care and need for post-exposure prophylaxis. Traveler given an official International Certificate of Vaccine or Prophylaxis (ICVP) for vaccine(s) received, and advised to carry original card with travel. Stamaril IND Number [id number] The provider has counseled and identified the patient as eligible for participation in the StamarilIND Expanded Access Program. Patient states that they will be traveling within the next 30 days to a YF-endemic region or a country that requires proof of YF vaccination for entry. Patient was counseled on the contraindications for Stamaril vaccination. Immune system status was reviewed to include malignancy, receipt of immunosuppressant medications (e.g., systemic corticosteroids [greater than the standard dose of topical or inhaled steroids], alkylating drugs, antimetabolites, or other cytotoxic or immunomodulatory drugs), or radiation therapy, or organ transplantation, or symptomatic HIV infection when accompanied by evidence of severe immune suppression. Patient also denies splenectomy, bone marrow transplant, thymus dysfunction (to include myasthenia gravis, thymoma or thymectomy) or allergy to eggs or chicken protein. Patient is not and will not be for fourteen days after vaccination. Patient is nine months of age or older on day of vaccination. The patient does not have an acute illness or moderate to severe fever today. Common side effects were reviewed including headache, asthenia, injection site pain, fever and myalgia. Serious, but rare, adverse effects were discussed including anaphylaxis, YF vaccine-Associated Neurotropic Disease (YEL-AND) and YF vaccine-Associated Viscerotropic Disease (YEL-AVD). The provider reviewed consent forms with the patient and the patient had the opportunity to read consent fully and ask questions before signing. An informed consent form, indicating that Stamaril vaccine is being administered in place of YF-VAX, was reviewed with the patient and has been signed anddated by persons >= 18 years of age. An assent form has been reviewed with the patient and signed and dated by persons 7 years to < 18 years of age, and informed consent form has been signed and dated by parent(s) or guardian(s) for persons >= 9 months to < 18 years of age. The patient was provided a copy of the consent and a copy was scanned to the medical record. Vaccine was administered and the patient was advised to remain in the clinic for twenty minutes after immunization to allow monitoring for adverse events. Follow-up Recommendations: Advised traveler to contact [facility] if travel plans change or other concerns arise. Patient advised to call travel clinic if they return from trip with any illness. Recommend Hepatitis A, TDaP, Meningococcal, and Influenza vaccines with PCP prior to travel. Time spent in travel counselin minutes. Vaccine information sheets given. documented in this encounter Plan of Treatment Not on file documented as of this encounter Visit Diagnoses Diagnosis Counseling for travel Other specified counseling Need for prophylactic vaccination against yellow fever Need for prophylactic vaccination and inoculation against yellow fever Need for malaria prophylaxis documented in this encounter Care Teams Superintendent Fish Hatchery Relationship Specialty Start Date End Date Therese Harper MD [address] [facility] [address] [place] [address] PCP - General Family Medicine 03/03/18 documented as of this encounter
[2024-04-04] MEDS: Bupivacaine 0.5% Pres-Free 30 ML VIAL IJ (08:43)
[2024-04-04] MEDS: Acetaminophen 500 MG TAB 1000 MG PO (08:44)
[2024-04-04] MEDS: Ibuprofen 600 MG TAB PO (08:44)
[2024-04-04] MEDS: Diph,Pertuss(Acell),Tet Vac/Pf 0.5 ML SYR IM (08:47)
[2024-04-04] MEDS: Cephalexin 500 MG CAP PO (10:23)
--- NOTE | 2024-04-04 11:24 | W.ED.GENAD ---
Discharge Plan Disposition Patient Disposition: Home Condition: Stable Discharge Details Clinical Impression: Open fracture of toe Primary Care Provider: Therese Harper ED Provider: Umm Burger Home Meds and New Rx's Prescriptions: New morphine 15 mg tablet 15 mg PO Q8H PRNQty: 10 0RF cephalexin 500 mg capsule 500 mg PO Q6H 10 Days Qty: 40 0RF Continued loratadine 5 mg tablet,disintegrating 5 mg PO DAILY PRN lysine HCl 1,000 mg tablet 1,000 mg PO DAILY nicotine 14 mg/24 hr patch 24 hour 1 patch TD DAILY Qty: 30 1RF amitriptyline 10 mg tablet 20 mg PO HS PRN (Reason: insomnia) Qty: 180 4RF echinacea 400 MG capsule 400 mg PO OCCASIONALLY ascorbic acid (vitamin C) [Vitamin C] 500 MG tablet 500 mg PO OCCASIONALLY cholecalciferol (vitamin D3) 125 mcg (5,000 unit) capsule 5,000 unit PO DAILY Discharge Instructions Instructions: Toe Injury (DC) Additional Instructions: Take the antibiotic daily, change the dressing every 48 hours Follow-up with podiatry in 1 week Weightbearing as tolerated on heel Elevate your leg is much as possible Motrin and Tylenol per package instructions and morphine only for pain uncontrolled with Motrin and Tylenol Please return for spreading redness, fever, worsening pain Stand Alone Forms: Work Release Referrals: Therese Harper MD, [facility] [Primary Care Provider] - Samantha Willingham DPM [[facility] STAFF PHYSICIAN] - 1 week HPI General Date/Time Provider Initiated Documentation: 04/04/24 08:15. HPI Narrative: The patient is a 44-year-old female who presents with a report of a right foot injury sustained yesterday around 2330 hours. She dropped a large piece of wood on her toe, resulting in pain and ecchymosis this morning. She cleaned and bandaged the injury. She is unsure as to when her tetanus was last updated. She reports no additional injuries or chance of . Related Data Home Medications ?Medication ?Instructions ?Recorded ?Confirmed ascorbic acid (vitamin C) 500 mg 500 mg PO OCCASIONALLY 08/04/12 04/04/24 tablet (Vitamin C) echinacea 400 mg capsule 400 mg PO OCCASIONALLY 08/04/12 04/04/24 cholecalciferol (vitamin D3) 125 5,000 unit PO DAILY 11/29/19 04/04/24 mcg (5,000 unit) capsule nicotine 14 mg/24 hr daily 1 patch transdermal DAILY #30 ea 01/11/22 04/04/24 transdermal patch lysine HCl 1,000 mg tablet 1,000 mg PO DAILY 01/31/23 04/04/24 amitriptyline 10 mg tablet 20 mg (2 x 10 mg) PO HS PRN 02/27/24 04/04/24 insomnia #180 tab-caps loratadine 5 mg disintegrating 5 mg PO DAILY PRN 02/27/24 04/04/24 tablet cephalexin 500 mg capsule 500 mg PO Q6H 10 days #40 caps 04/04/24 morphine 15 mg immediate release 15 mg PO Q8H PRN #10 tabs 04/04/24 tablet Previous Rx's ?Medication ?Instructions ?Recorded nicotine 14 mg/24 hr daily 1 patch transdermal DAILY #30 ea 01/11/22 transdermal patch amitriptyline 10 mg tablet 20 mg (2 x 10 mg) PO HS PRN 02/27/24 insomnia #180 tab-caps cephalexin 500 mg capsule 500 mg PO Q6H 10 days #40 caps 04/04/24 morphine 15 mg immediate release 15 mg PO Q8H PRN #10 tabs 04/04/24 tablet Allergies Allergy/AdvReac Type Severity Reaction Status Date / Time DUST Allergy Unknown Rhinitis Uncoded 04/04/24 08:16 MOLDS AND SMUTS Allergy Unknown Rhinitis Uncoded 04/04/24 08:16 POLLEN Allergy Unknown Rhinitis Uncoded 04/04/24 08:16 General Stated Complaint: Orthopedic AZALEA: 4 Exam Narrative Exam Narrative: General Appearance: Normal. Vital signs: Within normal limits. HEENT: Within normal limits. Respiratory: Within normal limits. Cardiovascular: Gastrointestinal: Genitourinary: Lymphatic: Back, Musculoskeletal: Extremities: Ecchymosis is present on the right third, fourth, and fifth digits. There is a laceration on the fourth phalanx of the foot. Suspect open fracture, unable to flex at fourth digit, no tenderness to dorsum of foot, cap refill intact. Skin: Warm and dry, no rash. Neurological: Sensation is intact. Psychiatric: Other observations: Course Vital Signs Vital signs: Vital Signs Temperature 37.1 C 04/04/24 08:10 Pulse 105 H 04/04/24 08:10 Respiratory Rate 16 04/04/24 08:10 Blood Pressure 146/90 H 04/04/24 08:10 Pulse Oximetry 97 04/04/24 08:10 Temperature 37.1 C 04/04/24 08:10 Temperature Source Temporal Artery Scan 04/04/24 08:10 Pulse 105 H 04/04/24 08:10 Respiratory Rate 16 04/04/24 08:10 Blood Pressure 146/90 H 04/04/24 08:10 Pulse Oximetry 97 04/04/24 08:10 Pain Level 5 04/04/24 10:25 Medical Decision Making Imaging X-ray of right foot shows fractures to distal phalanx of second, third, and fourth digits, concern for open fracture in the third and fourth digit. Initial Assessment: 44-year-old female with right foot injury from dropping a large piece of wood on her toe, resulting in pain and ecchymosis. Unsure of last tetanus update. Differential Diagnosis: - Open fracture: Suspected due to inability to flex fourth digit and presence of laceration. Plan includes x-ray, digital block, cleaning, and podiatry consult. ED Course: - X-ray of right foot shows fractures to distal phalanx of second, third, and fourth digits, concern for open fracture in third and fourth digits, read by me. - Digital block to fourth phalanx performed. - Wounds cleansed and dressed with Xeroform, Telfa, and placed in a postoperative surgical boot. - Given a dose of Keflex 500 mg. - Given several tablets of morphine, risk of opioid addiction reviewed. - Prescription for Keflex 500 mg to be taken four times daily provided. - Tetanus updated on 04/04/2024. - Case discussed with Dr. Fernandez, who will see patient in 1 week. - Dressing to be changed every 48 hours, wound to air dry after 72 hours while non-ambulatory at home. - Return precautions reviewed and understood. Final Assessment: Patient with right foot injury, confirmed fractures to distal phalanx of second, third, and fourth digits, concern for open fracture. Treatment included digital block, wound care, antibiotics, pain management, and tetanus update. Follow-up with podiatry in 1 week. Clinical Impression: - Right foot injury with fractures - Open fracture concern - Tetanus prophylaxis Disposition: - Discharge - Follow-Up: Podiatry in 1 week MDM Components Evaluation: - Number of Differential Diagnoses or Management Options: Open fracture - Amount and Complexity of Data Reviewed: X-ray, podiatry consultation - Risk of Complication and Morbidity or Mortality: Risk of infection due to open fracture, risk of opioid addiction due to pain management Quality:SDOH Health Related Social Needs: Health related social needs housing instability, housed, with risk of homelessness (Z59.811) PFSH All Active Problems Open fracture of toe (Acute) Vitamin D deficiency disease (Acute) Trochanteric bursitis of left hip (Acute) DUB (dysfunctional uterine bleeding) (Acute) Family history of alpha 1 antitrypsin deficiency (Acute) Annual physical exam (Acute) Alcohol use (Acute) Low back pain (Acute) Tension-type headache (Acute) Smoker (Chronic) Medical History Annual physical exam (11/08/16) Low back pain, non-specific w/sciatica presence unspecified Pap smear of vagina with ASC-US 12/28/05 +HPV Papanicolaou smear of vagina with atypical squamous cells of undetermined significance (ASC-US) (12/28/05) Tension type headache Family History Mother No problems noted. Father Hyperlipidemia Sister No problems noted. Maternal Grandfather , 1993 Heart disease Paternal Grandfather , 2001 Heart disease Asthma Maternal Grandmother , 2007 Diabetes Stroke Paternal Grandmother , 2011 Diabetes Stroke Daughter No problems noted. Social History (Updated 02/28/24 @ 08:19 by Sarah Khalil) Smoking/Tobacco Use Status: Current every day Tobacco Type: cigarettes Tobacco: How many years used: 5 Quit status: has quit before Second Hand Exposure: No Smoking risk assessment performed?: Yes Alcohol Intake: current Alcohol Intake frequency: a few times a month Alcohol type: wine Details: 3-4 drinks typical day, 6 or more drinks monthly or less Drug use: Current Sobriety Substance use type: marijuana Adopted: No Caregiver/Support person: No Foster care: No Household members: significant other and children Housing: house Number of Children: 1 Communication Needs: None Education Level: master's degree Do you need help understanding health information?: Never 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 Pets and animals: Yes Pets and animals: dog(s), fish and farm animals Sexually active: Yes Do you think of yourself as: straight/heterosexual Current gender identity: female What is your relationship status?: living with partner How often do you talk on the phone with friends or family?: twice per week How often do you get together with friends or relatives?: once per week How often do you attend nondenominational or alevism services?: 1-3 times per year Do you belong to any clubs or organized social groups?: no Panel score (0-1 are the most socially isolated patients): 2 What type of physical activity do you participate in: walking, weight lifting and additional Details: nordic ski, snowshoeing, hiking, backpacking Duration: 30-45 minutes/day Frequency: 3-4 times per week Special rachel needs: No Agree to transfusion: Yes Seatbelt use: always Helmet use: Yes Helmet use: always Drive intox or ride w/intox 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
== END 2024-04-04 10:31 | disposition home or self-care (01) ==
PROVIDERS: Emergency Provider Physician Assistant; PCP Family Medicine
DX: S92.5 Fracture of lesser toe(s) (principal); F17.210 Nicotine dependence, cigarettes, uncomplicated; Z23 Encounter for immunization; W20.8XXA Other cause of strike by thrown, projected or falling object, initial encounter; Y93.89 Activity, other specified; Y92.89 Other specified places as the place of occurrence of the external cause
CPT/HCPCS: 90471; 90715; 99283; 73630; J0665

== ENCOUNTER 2024-05-01 02:27 | Outpatient (CLI) | payer OTHER, SELFPAY ==
--- NOTE | 2024-05-01 07:15 | DI.RAD_ITS ---
Exam(s) XR FOOT RT COMPLETE EXAM: XR FOOT RT COMPLETE CLINICAL HISTORY: ? Healing,? Osteo,BLUNT TRAUMA,OPEN FX TOES,s92.501b,s93.501A,T14.90XA. TECHNIQUE: 2D digital imaging was performed. Three views. COMPARISON: CR XR FOOT RT COMPLETE from 04/04/2024 FINDINGS: BONES: There is stable alignment of the fractures of the distal phalanges of the 2nd through 4th toes . No bony destructive lesion is seen. JOINTS: No dislocation present. SOFT TISSUE: Soft tissues swelling, greatest at the 3rd and 4th toes. IMPRESSION: Stable alignment of 2nd through 4th distal phalangeal fractures. DATA REPOSITORY: RADIATION DOSE DELIVERED:
== END 2024-05-01 02:47 ==
LOC: DI 02:27
PROVIDERS: PCP Family Medicine; Visit Provider Podiatrist
DX: T14.90XD Injury, unspecified, subsequent encounter (principal); S92.511D Displaced fracture of proximal phalanx of right lesser toe(s), subsequent encounter for fracture with routine healing; X58.XXXD Exposure to other specified factors, subsequent encounter
CPT/HCPCS: 73630